=== PATIENT | female | born 1945 | race Caucasian/White ===

== ENCOUNTER 2019-05-28 12:30 | Day surgery (SDC) | payer MEDICARE, OTHER ==
[~2019-05-28] VITALS: Ht 165.1 cm; Wt 122.1 kg
[~2019-05-28 12:30] MED LIST: ASCO500 PO; ATOR40TA PO; AZO CRANBERRY1 EAC1 PO; Aspir 8181 MG PO; BALANCED B-100100 MG PO; CALCIUM 600 +1 EA11 PO; CHOL10002 PO; COLE1 PO; Complex B-1001 EACH PO; FISH OIL 1,0001 EAC1 PO; FISH OIL 1,001000 MG PO; LOVA40 PO; MOTION RELIEF25 MG PO
--- NOTE | 2019-05-28 13:19 | NUR ---
05/28/19 1319 Amanda Jones 1 TRY, VEIN BLEW SMALL 2 AC GOOD
--- NOTE | 2019-05-28 14:26 | NUR ---
05/28/19 1426 Brittney Che 6ML INDIGO CARMINE/NACL USED FOR POLYP REMOVAL.
--- NOTE | 2019-05-28 15:17 | NUR ---
05/28/19 1517 Brittney Che PT. HAD C/O HER CHEST FEELING HEAVY WHEN WAKING UP. PT. SCRUNCHED DOWN IN BED. PT. INSTRUCTED TO SIT UP IN BED & TAKE DEEP BREATHS. PT. VERBALIZED THAT THAT MADE HER FEEL BETTER & NOT HAVE A HEAVY FEELING. PT. DID C/O REAL, INSTRUCTED IT WAS PROBABLY BECAUSE SHE HASN'T EATEN FOR A WHILE. INSTRUCTED BY DR. BRUNSON PT. NEEDS TO STAY ON A FULL LIQUID DIET FOR 2 DAYS & NO HEAVY LIFTING, PUSHING OR PULLING. PT. GIVEN A PAMPHLET ON FULL LIQUID DIET. PT.ALSO INSTRUCTED THAT SHE HAD CLIPS IN HER COLON & SHE MAY OR MAY NOT SEE THEM BUT THEY WILL FALL OFF IN A WEEK TO 2 WEEKS.
== END 2019-05-28 15:20 | disposition home or self-care (01) ==
LOC: ORSCSDS 12:30
PROVIDERS: Internal Medicine Gastroenterology
PROC: 0DBE8ZX Excision of Large Intestine, Via Natural or Artificial Opening Endoscopic, Diagnostic (ICD-10-PCS; principal; 2019-05-28 14:00)
PROC: 0DBH8ZX Excision of Cecum, Via Natural or Artificial Opening Endoscopic, Diagnostic (ICD-10-PCS; principal; 2019-05-28 14:00)
DX: R19.7 Diarrhea, unspecified (principal); K57.30 Diverticulosis of large intestine without perforation or abscess without bleeding; I10 Essential (primary) hypertension; E66.01 Morbid (severe) obesity due to excess calories; Z68.42 Body mass index [BMI] 45.0-49.9, adult; G47.33 Obstructive sleep apnea (adult) (pediatric); Z79.899 Other long term (current) drug therapy; Z79.82 Long term (current) use of aspirin
CPT/HCPCS: 88305; J2704; J7120

== ENCOUNTER 2020-12-01 12:02 | Day surgery (SDC) | payer MEDICARE, OTHER ==
[~2020-12-01] VITALS: Ht 167.6 cm; Wt 121.7 kg
[~2020-12-01 12:02] MED LIST changes: +CHOLP PO; +LOSARTAN POTAS100 M1 PO; +THERA-D2000 UNIT PO
== END 2020-12-01 14:07 | disposition home or self-care (01) ==
LOC: ORSCSDS 12:02
PROVIDERS: Internal Medicine Gastroenterology
PROC: 0DBK8ZX Excision of Ascending Colon, Via Natural or Artificial Opening Endoscopic, Diagnostic (ICD-10-PCS; principal; 2020-12-01 13:30)
PROC: 0DBN8ZX Excision of Sigmoid Colon, Via Natural or Artificial Opening Endoscopic, Diagnostic (ICD-10-PCS; principal; 2020-12-01 13:30)
PROC: 0DBM8ZX Excision of Descending Colon, Via Natural or Artificial Opening Endoscopic, Diagnostic (ICD-10-PCS; principal; 2020-12-01 13:30)
DX: Z86.010 Personal history of colon polyps (principal); D12.2 Benign neoplasm of ascending colon; D12.4 Benign neoplasm of descending colon; D12.5 Benign neoplasm of sigmoid colon; K57.30 Diverticulosis of large intestine without perforation or abscess without bleeding; E66.01 Morbid (severe) obesity due to excess calories; Z68.42 Body mass index [BMI] 45.0-49.9, adult; G47.33 Obstructive sleep apnea (adult) (pediatric); I10 Essential (primary) hypertension; E78.5 Hyperlipidemia, unspecified; E78.00 Pure hypercholesterolemia, unspecified; J45.909 Unspecified asthma, uncomplicated; Z79.899 Other long term (current) drug therapy
CPT/HCPCS: 88305; 93005; 93010; A9270; J2250; J2704; J7120